=== PATIENT | female | born 1960 | race Caucasian/White ===

== ENCOUNTER 2018-07-03 06:23 | Day surgery (SDC) | payer BC ==
[~2018-07-03 06:23] MED LIST: Buffered Lidocaine 0.9% SYRIN* 5 ML/SYR SYRINGE INTRADERM ONE
[2018-07-03] MEDS ORDERED: Propofol* 10 MG/ML 20 ML BTL IV PUSH ONE (06:41)
[2018-07-03] MEDS ORDERED: Lidocaine 2% PF * 5 ML VIAL ONE (06:43)
[2018-07-03] MEDS ORDERED: ROPIVACAINE 5 MG/ML 30 ML BTL (0.5%) ONE (07:06)
[2018-07-03 08:18] VITALS: BP 103/60
--- NOTE | 2018-07-03 23:03 | OP ---
DATE OF OPERATION: 07/03/18 [facility] DATE OF : 56 SURGEON: Ignacio Shields MD RIPSAW GRADER: SIVA Oliveira ANESTHESIOLOGIST: None. ANESTHESIA: Local only with digital block with 0.5% ropivacaine. PRE-OP DIAGNOSIS: Left middle finger dorsal PIP joint ganglion cyst. POST-OP DIAGNOSIS: Left middle finger dorsal PIP joint ganglion cyst. OPERATIVE PROCEDURE: Excision of ganglion cyst left middle finger dorsal PIP joint. INDICATIONS: Hailey has the cyst. It is quite bothersome to her. We had talked about the risks and benefits including the risk of stiffness in the finger and risk of extensor tendon disruption. She had wanted to proceed with surgery. ESTIMATED BLOOD LOSS: 2 mL. COMPLICATIONS: None. FINDINGS: See above and below. DESCRIPTION OF PROCEDURE: Hailey was seen in the preoperative holding area. The correct site, side, and procedure were identified. A digital block was performed. We came back to the operating room, arm was prepped and draped in the usual fashion. A time-out was performed. I placed a Tourni-cot on the finger. I made a curvilinear incision over the dorsum of the left middle finger PIP joint. The skin was raised off the ganglion. Ganglion was identified. The margins of the ganglion were freed up from the surrounding soft tissue with a [place] blade. The cyst was coming up between the central slip and the conjoint lateral band. The cyst was amputated at the joint capsule. The capsule was cauterized with the bipolar cautery. The splint in the tendon was so small that no repair was needed. The wound was irrigated out. Skin was closed with 4-0 nylon suture. Dressings were placed. The Tourni-cot was released, the finger pinked up immediately. She was taken to the recovery room in stable condition. [id number]/[facility] #: [id number] [facility]
== END 2018-07-03 08:22 | disposition home or self-care (01) ==
LOC: OREAST 06:23
PROVIDERS: ATTEND Orthopaedic Surgery Hand Surgery
DX: M67.442 Ganglion, left hand (principal); I42.9 Cardiomyopathy, unspecified; K21.9 Gastro-esophageal reflux disease without esophagitis
CPT/HCPCS: 88304; J2704; J2795